=== PATIENT | male | born 1995 | race Caucasian/White ===

== ENCOUNTER 2018-06-22 21:15 | Emergency (ER) | payer OTHER, SELFPAY ==
[2018-06-22 21:16] VITALS: BP 166/93; PULSE 84; RESP 20; TEMP 36.1; O2SAT 98; BMI 25.1
--- NOTE | 2018-06-22 21:44 | ED.VISSUMM ---
- ER Visit Summary Date of Service: 06/22/18 Chief Complaint: Right lower dental pain History of Present Illness: The patient is a 22 M worsening right lower dental pain over the past week. States same tooth was repaired in [place] from dentist on 06 June. States doing well up to a week ago. Hot and cold sensitivities. No fevers. No tobacco history. States currently in the area now. Took ibuprofen this morning. No history of gastric ulcers. Physical Examination: General: Alert and oriented ?3, no acute distress HEENT: Normocephalic, atraumatic. Moist mucosa membranes. No sublingual edema. No trismus. Airway patent. There is filling noted tooth #31, there is no tenderness to percussion, no abscess or swelling of the gums. Neck: supple, nontender. Cardiovascular: Regular rate and rhythm, no murmurs Respiratory: Normal breath sounds, symmetric, no distress Abdomen: Soft, nontender, nondistended Extremities: Nontender, no edema, pulses intact ?4 Neuro: no focal neurological deficits. Test Results: [] Emergency Department Course and Treatment: Patient nontoxic vital stable. Cannot reproduce tenderness, he states hot and cold sensitivities. He will be placed on penicillin. Motrin as needed. Follow-up with dental list. Treatment Plan: [] Disposition: Discharge Impression: Odontalgia This note was generated with [employer] dictation software. It may contain incorrect words, spelling, and punctuation that were not noted in review of the chart prior to signing ED Disposition - Plan for ED Patient: Disposition: Home or Assisted Living Chief Complaint: Dental Diagnosis: Odontalgia Instructions: ED Tooth Pain Prescriptions: Ibuprofen 600 mg PO 4X/DAY PRN #20 tablet PRN Reason: Pain Penicillin V Potassium 500 mg PO 4X/DAY #40 tablet Referrals: Mariana Del Valle MD [Primary Care Provider] - Additional Instructions: call dentist from list to follow up.
--- NOTE | 2018-06-22 21:47 | ED.DCSUM_ITS ---
- ER Visit Summary Date of Service: 06/22/18 Chief Complaint: Right lower dental pain History of Present Illness: The patient is a 22 M worsening right lower dental pain over the past week. States same tooth was repaired in [place] from dentist on 06 June. States doing well up to a week ago. Hot and cold sensitivities. No fevers. No tobacco history. States currently in the area now. Took ibuprofen this morning. No history of gastric ulcers. Physical Examination: General: Alert and oriented ?3, no acute distress HEENT: Normocephalic, atraumatic. Moist mucosa membranes. No sublingual edema. No trismus. Airway patent. There is filling noted tooth #31, there is no tenderness to percussion, no abscess or swelling of the gums. Neck: supple, nontender. Cardiovascular: Regular rate and rhythm, no murmurs Respiratory: Normal breath sounds, symmetric, no distress Abdomen: Soft, nontender, nondistended Extremities: Nontender, no edema, pulses intact ?4 Neuro: no focal neurological deficits. Test Results: [] Emergency Department Course and Treatment: Patient nontoxic vital stable. Cannot reproduce tenderness, he states hot and cold sensitivities. He will be placed on penicillin. Motrin as needed. Follow-up with dental list. Treatment Plan: [] Disposition: Discharge Impression: Odontalgia This note was generated with [employer] dictation software. It may contain incorrect words, spelling, and punctuation that were not noted in review of the chart prior to signing ED Disposition - Plan for ED Patient: Disposition: Home or Assisted Living Chief Complaint: Dental Diagnosis: Odontalgia Instructions: ED Tooth Pain Prescriptions: Ibuprofen 600 mg PO 4X/DAY PRN #20 tablet PRN Reason: Pain Penicillin V Potassium 500 mg PO 4X/DAY #40 tablet Referrals: Mariana Del Valle MD [Primary Care Provider] - Additional Instructions: call dentist from list to follow up.
[2018-06-22 21:54] VITALS: BP 152/80; PULSE 80; RESP 14; O2SAT 98
[2018-06-22] MEDS: Penicillin Vk 250 MG Tablet 500 MG PO (22:10)
[2018-06-22] MEDS: Ibuprofen 600 MG Tablet PO (22:10)
== END 2018-06-22 22:12 | disposition home or self-care (01) ==
LOC: ED 22:07
PROVIDERS: Emergency Provider Emergency Medicine; Family Provider Family Medicine; PCP Family Medicine
DX: K08.89 Other specified disorders of teeth and supporting structures (principal)
CPT/HCPCS: 99283

== ENCOUNTER 2022-08-27 12:40 | Emergency (ER) | payer MEDICAID, SELFPAY ==
[2022-08-27 12:40] VITALS: BP 158/96; PULSE 150; RESP 16; TEMP 36.9; O2SAT 100; BMI 24.2
== END 2022-08-27 13:15 | disposition left against medical advice (07) ==
LOC: ED 13:35
DX: Z53.21 Procedure and treatment not carried out due to patient leaving prior to being seen by health care provider (principal)